=== PATIENT | male | born 2005 | race Caucasian/White ===

== ENCOUNTER 2023-12-01 13:27 | Emergency (ER) | payer SELFPAY ==
[2023-12-01] MEDS ORDERED: Ketorolac Tromethamine 30 MG (1 mL) VIAL ONE (14:21)
[2023-12-01 14:56] LABS: MONO NEGATIVE CONTROL ZONE White (Negative) (White); MONO POSITIVE CONTROL Pink Line (Positive) (PINK/RED); Mononucleosis NEGATIVE (NEGATIVE)
== END 2023-12-01 16:00 | disposition home or self-care (01) ==
LOC: ERS 13:27
DX: J02.9 Acute pharyngitis, unspecified (principal)
CPT/HCPCS: 36415; 86308; 87081; 87430; 96372; 99283; J1885